=== PATIENT | male | born 1995 ===

== ENCOUNTER 2018-07-04 11:00 | Inpatient (IN) | payer BC, SELFPAY ==
[2018-07-04 13:13] VITALS: BMI 21.9
[2018-07-04] MEDS ORDERED: hydrALAZINE 20 MG/ML VIAL SLOW IVP PRN (14:20)
[2018-07-04] MEDS ORDERED: Morphine 4 MG/ML Carpuject SLOW IVP PRN (14:20)
[2018-07-04] MEDS ORDERED: Ondansetron ODT 4 MG TAB PO PRN (14:20)
[2018-07-04] MEDS ORDERED: Acetaminophen 325 MG TAB PO PRN (14:20)
[2018-07-04] MEDS ORDERED: Ondansetron HCl/PF 4 MG/2 ML Vial IVP PRN (14:20)
--- NOTE | 2018-07-04 14:59 | HP ---
PRIMARY CARE PHYSICIAN: Dr. Sanchez in [place]. The patient's tentering machine off bearer is Dr. Gerardo at [facility] and that number is [phone]. CHIEF COMPLAINT: Abdominal pain. HISTORY OF PRESENT ILLNESS: Mr. Thao is a pleasant 22-year-old gentleman that has a history of Cr ohn's disease, which was diagnosed recently last September. He was doing fine. He takes Pentasa stephane y until last night. He said he went to go drinking with some friends and he said he did not drink th at much, within the following day around 7:30 in the morning, he began having severe abdominal pain. He said that the pain was like about of 9. It was a stabbing pain. There was some associated na usea. He denies having any diarrhea or loose stools, no blood in the stool, and no vomiting. He say s the pain was so severe that he had to come to the emergency room for evaluation. In the ER, he was evaluated and found to have findings consistent with a partial bowel obstruction and as a result, he is being admitted for further evaluation and treatment. REVIEW OF SYSTEMS: All systems were reviewed and are negative except for that mentioned in the histo ry of present illness. PAST MEDICAL HISTORY: Significant for Crohn's disease, gastroesophageal reflux disease, hiatal herni a, and a heart murmur. PAST SURGICAL HISTORY: He has had his wisdom teeth removed. SOCIAL HISTORY: He is a nonsmoker, nondrinker and he is currently a student at [employer]. FAMILY HISTORY: Significant for gastroesophageal reflux disease in his father, colon cancer as well as breast cancer and coronary artery disease. ALLERGIES: MRI CONTRAST, which causes nausea and vomiting. CURRENT MEDICATIONS: Include Pentasa 500 mg twice a day, omeprazole 20 mg daily, Zyrtec 10 mg as nee ded, Bentyl 10 mg q.i.d. as needed, fish oil 1000 mg daily, vitamin B12 1000 mcg daily. PHYSICAL EXAMINATION: GENERAL: He is alert and oriented. He appears to be in no acute distress. He is well-developed and well-nourished. VITAL SIGNS: Blood pressure is 111/80, heart rate 80, respiratory rate of 16, temperature is 98.5. HEENT: Pupils are equal, round, and reactive. Extraocular muscles are intact. His sclerae are anic teric. Throat no erythema, no exudates. NECK: No adenopathy, no bruits. LUNGS: Clear to auscultation bilaterally. There is no wheezing, no rales. CARDIOVASCULAR: He has a normal S1, S2. There is no S3 or S4. No murmurs, clicks or rubs. ABDOMEN: Soft, it is nontender, nondistended. Positive for bowel sounds. There is no rebound, no g uarding, no organomegaly. EXTREMITIES: There is no clubbing, cyanosis, no edema. NEUROLOGIC: The exam is nonfocal. LABORATORY DATA AND IMAGING: The lab results from the [facility] ER were reviewed and include a white blood cell count of 11, hemoglobin of 14.9, hematocrit is 43.8, platelet count is 336. The sod ium was 142, potassium 3.4, chloride is 101, CO2 is 27, BUN of 12, creatinine 1.2, glucose is 90. Ur inalysis is a negative. The patient also had a CT scan that was reported to have had findings consis tent with a small-bowel obstruction. There was moderate stool throughout the colon. There was a pot ential gradual transition point in the right anterior abdomen. ASSESSMENT AND PLAN: This is a pleasant 22-year-old gentleman who presents to the emergency room wit h the sudden onset of severe abdominal pain. He was found to have a partial small-bowel obstruction. He has no known history of any abdominal surgery, but he does have a history of Crohn's disease and it is possible this could be related. He will be admitted and started on IV fluid resuscitation, IV antiemetics and pain medication and we will consult Gastroenterology for further recommendations. H e will be placed on IV Pepcid as well as deep venous thrombosis prophylaxis. We will continue to naya nd his chemistry and CBC levels, we will hold off on an NG tube at this point unless the patient star ts to becoming more distended and/or feels nauseated.
[2018-07-04] MEDS: NS 0.9% w/ 20 MEQ KCL 1,000 ML/1,000 ML BAG IV SCH (15:10)
--- NOTE | 2018-07-04 19:59 | RAD ---
RADIOGRAPH ABDOMEN 1 VIEW: 07/04/18 at 6:04 p.m. HISTORY: 22-year-old male with abdominal pain. COMPARISON: No prior studies of any type are currently available. FINDINGS: This was intended to be a meter maker view for a small bowel series to rule out small bowel obstruction. However, there is oral contrast material within nondilated right hemicolon and within multiple nondil ated small bowel loops throughout the abdomen, reportedly from CT performed [facility] today. The presence of oral contrast material in the colon indicates that there is n o small bowel obstruction. The small bowel series has been cancelled. The urinary bladder is distende d with IV contrast from that previous CT. No evidence of organomegaly. IMPRESSION: There is no small bowel obstruction. POS: TYSHAWN
[2018-07-04] MEDS: Famotidine/PF 20 mg/2ml Vial SLOW IVP SCH (20:08)
--- NOTE | 2018-07-04 22:53 | CON ---
DATE OF CONSULTATION: 07/04/2018 REASON FOR CONSULTATION: Possible small-bowel obstruction in light of Crohn's disease. CONSULTING PHYSICIAN: Javier Griffiths MD HISTORY OF PRESENT ILLNESS: The patient is a 22-year-old male with past medical history of Crohn's d isease and gastroesophageal reflux disease presenting with complaints of abdominal pain. He states t hat he was in his usual state of health until this morning, when he had the acute onset of periumbili mary abdominal pain characterized as a sharp/aching-type sensation, was constant, nonradiating, and re ached a severity of 10/10. This was also associated with increased nausea and vomiting with nonblood y emesis x1; however, this was not associated with any fevers, chills, GI bleeding, or change in tamar l habits. Given the severity of his pain, it prompted him to seek healthcare [facility], where he had a CT scan that showed a possible small-bowel obstruction in the right anterior abdomen concerning for uncontrolled Crohn's disease versus a Crohn's disease flare. He was ultimately transferred to [facility] for further evaluation. Upon interview today, the patient states that his abdominal pain is much improved with the current se verity approximately 3 to 4/10, but still located in the periumbilical and right lower quadrant. Cur rently, he denies any nausea, vomiting, fevers, chills, shortness of breath, diarrhea, constipation, GI bleeding, dysphagia, or odynophagia. He also denies any increased appearance of rashes, joint valentina ns, or changes in vision. REVIEW OF SYSTEMS: A 10-category review of systems was obtained with all responses negative except f or the pertinent positives as listed in HPI. PAST MEDICAL HISTORY: Crohn's disease, GERD, hiatal hernia. PAST SURGICAL HISTORY: [place] teeth extraction. FAMILY HISTORY: Colon cancer in his paternal grandfather diagnosed at older age. Father diagnosed w ith colon polyps (unknown size or histology). Unknown relative with stomach cancer, coronary artery disease/myocardial infarction, GERD. OUTPATIENT MEDICATIONS: Pentasa 500 mg b.i.d., omeprazole 20 mg daily, Zyrtec 10 mg as needed, Benty l 10 mg q.i.d. as needed, fish oil 1000 mg daily, vitamin B12 1000 mcg daily. ALLERGIES: GADOLINIUM. PHYSICAL EXAMINATION: VITAL SIGNS: Temperature 98.2, pulse 73, blood pressure 123/67, respiratory rate 16, saturating 95% on room air. GENERAL: The patient was lying in bed in no acute distress. Alert and oriented x4. HEENT: Neck is supple. No JVD or scleral icterus noted. CARDIOVASCULAR: 3/6 systolic ejection murmur was heard at the left lower sternal border, otherwise n o discernible gallops or rubs with regular rate. RESPIRATORY: Clear to auscultation bilaterally with no discernible wheezes or rales. ABDOMEN: Normoactive bowel sounds. Soft, nondistended. Mild tenderness to palpation in the periumb ilical region, otherwise normal. EXTREMITIES: No cyanosis, clubbing, or edema. LABORATORY DATA: [facility] with a CBC with a white blood cell count of 11 , hemoglobin 14.9, hematocrit 43.8, platelets 336. Chemistry with a sodium of 142, potassium 3.4, ch loride 101, CO2 of 27, BUN 12, creatinine 1.2, glucose 90, AST 32, ALT 16, alkaline phosphatase 62, t otal bilirubin 0.5. IMAGING DATA: CT of the abdomen and pelvis obtained at the [facility] showed a small hiatal hernia, mild splenomegaly, moderate amount of stool throughout the colon, as well as mildly dilated d istal small bowel loops with air fluid levels and adjacent mild mesenteric edema and fluid with a pot ential transition point in the right anterior abdomen concerning for a partial small-bowel obstructio n. No free air was noted, but a mild L1 compression fracture was also seen. ASSESSMENT AND PLAN: The patient is a 22-year-old male with past medical history of hiatal hernia, G ERD, and Crohn's disease with terminal ileum involvement presenting with increased periumbilical abdo ana pain and imaging concerning for partial small-bowel obstruction. Crohn's disease: The patient was initially diagnosed with Crohn's disease in 09/2012 when he had the acute onset of periumbilical/right lower quadrant abdominal pain and diarrhea that prompted admissio n to the hospital. He was subsequently evaluated by a director recreation with a colonoscopy performe d showing inflammation within the terminal ileum. Biopsies were indeterminate for etiology, so the p atient underwent a Prometheus panel with the attending physician ultimately making the diagnosis of C rohn's disease. He was subsequently placed on Pentasa as further management of his Crohn's disease a nd had been doing well with some flares of periumbilical abdominal pain over the last few months, but none within the last 1-2 months. However, he is now presenting with increased periumbilical abdomin al pain characterized as a sharp/aching-type sensation as well as imaging showing a possible partial small-bowel obstruction within the distal ileum concerning for possible flare or progression of his C rohn's disease. Unfortunately, his prior colonoscopy report is not available for review to help dete rmine extent of involvement and/or severity of disease; however, given the presence of small-bowel Cr ohn's disease, it could be considered as complicated disease and is very controversial in terms of us e of 5-ASA compounds. At this time, the patient may need more than a mesalamine derivative to includ e immunomodulator and/or biologic therapy based on extent of involvement. RECOMMENDATIONS: 1. I have already contacted the patient's outpatient director recreation, Dr. Hector Bhatia for further information regarding the colonoscopy in 09/2017 in regards to extent of involvement and severity. 2. I would obtain a small-bowel follow through study to determine extent of involvement within the s mall bowel. 3. I would keep the patient n.p.o. for now until determination of small-bowel obstruction is better characterized. 4. I will place the patient on methylprednisolone 40 mg t.i.d. for probable Crohn's flare. 5. Colonoscopy is not necessarily indicated at this time unless my conversation with Dr. Bhatia is in determinate for characterizing extent of disease. 6. We will hold off on immunomodulator or biologic therapy at this time. We will continue to follow. Please call with any questions.
[2018-07-05] MEDS: NS 0.9% w/ 20 MEQ KCL 1,000 ML/1,000 ML BAG IV SCH ×2 (01:09→12:14)
[2018-07-05 05:38] LABS: #Lymphocytes 1.1 thou/uL (1.20-3.40); #Monocytes 0.1 thou/uL (0.11-0.59); #Neutrophils 4.9 thou/uL (1.40-6.50); %Basophils 0.2 % (0.0-1.0); %Eosinophils 0.1 % (0.0-10.0); %Lymphocytes 17.3 % (28.0-48.0); %Monocytes 0.9 % (0.0-4.0); %Neutrophils 81.5 % (31.0-61.0); Mean Corpuscular HGB CONC 32.2 g/dL (32.0-36.0); Mean Corpuscular Volume 89.8 fL (78.0-98.0); Mean Platelet Volume 8.1 fL (7.4-10.4); Platelet Count 272 thou/uL (130-400); RBC Distribution Width 12.5 % (11.5-14.5); Red Blood Cell (RBC) Count 4.47 mill/uL (4.00-5.20); White Blood Cell (WBC) Count 6.1 thou/uL (4.8-10.8)
[2018-07-05 06:06] LABS: Anion Gap 8 mmol/L (10-20); BUN (Urea Nitrogen) 16 mg/dL (8.9-20.6); Calc. Creatinine Clearance 131 mL/min (70-130); Calcium 9.1 mg/dL (7.8-10.44); Carbon Dioxide 27 mmol/L (22-29); Chloride 107 mmol/L (98-107); Estimated GFR-MDRD Greater than 90; Glucose 127 mg/dL (70-105); Potassium 5.1 mmol/L (3.5-5.1); Sodium 137 mmol/L (136-145)
--- NOTE | 2018-07-05 07:33 | PDOC.PN ---
- Subjective Encounter Start Date: 07/05/18 Encounter Start Time: 07:31 Mr. Thao was seen in follow-up of abdominal pain, and Crohn's disease. He says he feels much better. He denies any abdominal pain. He has not had any diarrhea. - Objective Resuscitation Status: Resuscitation Status FULL:Full Resuscitation MAR Reviewed: Yes Vital Signs & Weight: Vital Signs (12 hours) Temp Pulse Resp BP Pulse Ox 07/05/18 04:00 98.1 F 63 16 99/53 L 98 07/04/18 23:50 98.0 F 62 16 99/49 L 97 07/04/18 20:00 95 Weight Weight 166 lb I&O: 07/04/18 07/05/18 07/06/18 06:59 06:59 06:59 Intake Total 1602 Balance 1602 Result Diagrams: 07/05/18 05:20 07/05/18 05:20 Phys Exam - Physical Examination HEENT: PERRLA Respiratory: no wheezing, no rales, no rhonchi, clear to auscultation bilateral Cardiovascular: RRR, no significant murmur, no rub Gastrointestinal: soft, non-tender, no distention, positive bowel sounds Musculoskeletal: no edema Dx/Plan (1) Partial small bowel obstruction Status: Acute (2) Crohns disease Code(s): K50.90 - CROHN'S DISEASE, UNSPECIFIED, WITHOUT COMPLICATIONS Status: Acute - Plan * Partial Small bowel obstruction- clinically this appears to have resolved- his symptomas have improved, and X-ray appears normal * Crohn's disease- he has been placed on steroids- and await further recommendations from GI.
[2018-07-05 08:53] VITALS: BP 119/66; TEMP 95.6
[2018-07-05] MEDS ORDERED: Enoxaparin Sodium 40 MG/0.4 ML SYRINGE SC SCH (09:00)
[2018-07-05] MEDS: Famotidine/PF 20 mg/2ml Vial SLOW IVP SCH (10:21)
--- NOTE | 2018-07-05 15:59 | PRG ---
DATE OF SERVICE: 07/05/2018 REASON FOR CONSULTATION: Small bowel Crohn's disease. SUBJECTIVE: The patient did well overnight with no acute events or problems. He is completely asymp tomatic this morning with no recurrence of his abdominal pain. He had been able to tolerate a clear liquid diet with no problems. Currently, denies any nausea, vomiting, fevers, chills, shortness of b reath, abdominal pain, dysphagia, odynophagia, diarrhea or constipation. OBJECTIVE: VITAL SIGNS: Temperature 95.6, pulse 56, blood pressure 99/53, respiratory rate 18, satting 99% on r oom air. GENERAL: The patient lying in bed, in no acute distress. Alert and oriented x4. CARDIOVASCULAR: Regular rate and rhythm. LUNGS: Clear to auscultation bilaterally. ABDOMEN: Normoactive bowel sounds, soft, nontender, nondistended. EXTREMITIES: No cyanosis, clubbing or edema. LABORATORY DATA: CBC with a white blood cell count of 6.1, hemoglobin 13, hematocrit 40.2, platelets 272. Chemistry with a sodium of 137, potassium 5.1, chloride 107, CO2 27, BUN 16, creatinine 0.96, glucose 127. CRP 3.05, ESR 5. IMAGING DATA: KUB of the abdomen performed on 07/04/2018 showed oral contrast material within nondil ated right hemicolon with multiple nondilated small bowel loops throughout the abdomen, reportedly fr om CT performed at the outside institution. At this point, there was no evidence of small bowel obst ruction. ASSESSMENT AND PLAN: The patient is a 22-year-old male with past medical history of hiatal hernia, G ERD, and Crohn's disease with terminal ileal involvement presenting with increased periumbilical abdo ana pain and imaging concerning for partial small-bowel obstruction versus Crohn's flare. Crohn's disease/flare: The patient was initially diagnosed with Crohn's disease in 09/2017 when he h ad acute onset of periumbilical/right lower quadrant abdominal pain and diarrhea that prompted admiss ion. He had colonoscopy showing increased inflammation with biopsies consistent with ileitis. A Pro metheus panel was then performed with markers indicative of inflammatory bowel disease. He initially attempted to control the disease via dietary management, but had increasing symptoms. He was subseq uently placed on Pentasa 1-2 months ago again with periodic symptoms while on this regimen. At this point in time, given the failure on dietary management as well as 5-ASA compounds, I would consider t hem failures and will need an escalation in therapy. 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 RECOMMENDATIONS: 1. I would start the patient on budesonide 9 mg daily until seen in the GI clinic. 2. We would follow the patient up in the GI clinic in 2 weeks for further evaluation of Crohn's dise ase. 3. The patient will need serologies obtained for TB, chronic hepatitis and HIV prior to placement on biologic therapy. 4. I would recommend placement on Stelara for long-term management of ileal Crohn's disease. The patient can be discharged from a GI standpoint at this time. Please call with any additional que teoodra Marlow masters #[phone] to.
--- NOTE | 2018-07-05 22:50 | DIS ---
DATE OF ADMISSION: 07/04/2018 DATE OF DISCHARGE: 07/05/2018 PRIMARY CARE PROVIDER: in [place]. DISCHARGE DIAGNOSES: 1. Partial bowel obstruction, resolved. 2. Crohn's disease. DISCHARGE MEDICATIONS: Include budesonide 3 mg extended release 9 mg daily, omeprazole 20 mg daily, Pentasa 500 mg twice daily, fish oil 1000 mg daily, Bentyl 10 mg q.i.d. as needed, vitamin B12 1000 m cg p.o. daily and Zyrtec 10 mg daily. PROCEDURES DONE: The patient had an abdominal x-ray series, which was negative for obstruction. The patient had had a CT scan done at an outside emergency room, which showed findings suggestive of a p artial small-bowel obstruction. CODE STATUS: Full code. ALLERGIES: GLUTEN and IODINATED CONTRAST. HOSPITAL COURSE: Mr. Thao is a pleasant 22-year-old gentleman who presented at an outside emergen cy room with severe abdominal pain he was evaluated and found to have findings of a partial sma ll-bowel obstruction. For this reason, he was sent to our facility for further evaluation. By the t misti he reached our facility, his symptoms actually had started to improve. He was seen by gastroente rologist who left him n.p.o. overnight and an x-ray of the abdomen was done, which showed resolution of the obstruction. The following day, he was able to be advanced to a clear liquid diet, which he t olerated and with the absence of symptoms, he will be discharged home. He did have some lab work don e in the event that he requires a biologic agent. His medications for the Crohn's disease were adjus franklin with the addition of budesonide. He is to follow up with his primary care physician in 1-2 weeks and also with his remote sensing program manager.
== END 2018-07-05 15:35 | disposition home or self-care (01) | DRG 386 ==
LOC: ONC 11:40
PROVIDERS: ADMIT Internal Medicine; ATTEND Internal Medicine
DX: K50.012 Crohn's disease of small intestine with intestinal obstruction (principal); K21.9 Gastro-esophageal reflux disease without esophagitis; K44.9 Diaphragmatic hernia without obstruction or gangrene; Z88.8 Allergy status to other drugs, medicaments and biological substances
CPT/HCPCS: 36415; 74018; 80048; 85025; 85652; 86140; J2920; S0028